=== PATIENT | female | born 1975 | race Caucasian/White ===

== ENCOUNTER 2020-10-12 12:19 | Emergency (ER) | payer MEDICAID ==
[~2020-10-12] VITALS: Ht 167.6 cm; Wt 81.6 kg
[2020-10-12 12:36] VITALS: BP 123/69
--- NOTE | 2020-10-12 13:07 | NUR ---
PT IS WHEEDL TO RADIOLOGY.
--- NOTE | 2020-10-12 14:00 | NUR ---
Patient discharged to home in stable condition. Written and verbal after care instructions given. Patient verbalizes understanding of instruction.
== END 2020-10-12 14:33 | disposition home or self-care (01) ==
LOC: ER 12:24
DX: U07.1 COVID-19 (principal)
CPT/HCPCS: 71045-TC